=== PATIENT | female | born 1960 ===

== ENCOUNTER 2016-10-28 23:40 | Emergency (ER) | payer OTHER ==
--- NOTE | 2016-10-29 00:34 | ED NURSING NOTES ---
Clinical Report - Nurses [address] [place] [address] 10/28/2016 23:41 Patient: MARYANN HUNT TRIAGE Triage time 23:44. Acuity: LEVEL 3. Chief Complaint: COUGH (Runny nose). 23:50. 23:44 10/28/16. Alert. SEPSIS SCREEN: Sepsis Screen. Negative (no infection suspected/documented). --23:50 Jh Lama R.N. 23:44 10/28/16. BP: 159/82. HR: 96. RR: 17. O2 saturation: 99%. Temp: 99.2 F (oral). Pain level now: 02/02. --23:50 Jh Lama R.N. Weight: 77.1 kg stated. Height/Length: 63 inches Per Patient. BMI: 30.1. --23:48 Jh Lama R.N. Medications Losartan Potassium Oral (pt unsure of dose ). --23:46 Jh Lama R.N. Hydrochlorothiazide Oral 12.5 mg, daily. --23:46 Jh Lama R.N. Citalopram Hydrobromide Oral (Tablet 10 mg) 1 tablet, daily. --23:47 Jh Lama R.N. Medication/allergy information source: the patient. --23:50 hJ Lama R.N. Allergies No Known Drug Allergy. --23:47 Jh Lama R.N. History Arrived by private vehicle. Historian: patient. Accompanied by friend. Primary physician (Dr. Tomas). Onset. (2 weeks ago). ( Patient reports cough for about 2 weeks that has gotten worse). 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 PAST MEDICAL HX: Immunizations: up-to-date. The patient is post-menopausal. SOCIAL HX: Former smoker, end date 2011. No alcohol use or drug use. No infectious disease exposure. ABUSE ASSESSMENT: No report of abuse. FALL RISK ASSESSMENT: Fall risk assessment completed. No fall risk identified. NUTRITIONAL RISK ASSESSMENT: The nutritional risk assessment revealed no deficiencies. FUNCTIONAL ASSESSMENT: Functional assessment: no impairments noted. LEARNING NEEDS ASSESSMENT: The learning needs assessment revealed no barriers. SKIN INTEGRITY ASSESSMENT: Skin integrity risk assessment completed. No skin integrity risk identified. --23:50 Jh Lama R.N. PROBLEMS: Bronchitis. Carpal Tunnel Syndrome. Cervical Radiculopathy. Rotator Cuff Injury. Diabetes Mellitus. Muscle Strain, Lower Extremity. Sciatica. Hypertension. --23:48 Jh Lama R.N. ADDITIONAL SURGERIES: Carpal Tunnel Surgery. Cholecystectomy. . Shoulder Surgery [2012]. --23:48 Jh Lama R.N. Interventions ID band on patient. To treatment room. --23:50 Jh Lama R.N. PHYSICAL ASSESSMENT 23:50. Ambulatory to room. Patient gowned. GENERAL / NEURO / PSYCH: Alert. Oriented X 4. HEENT: No facial asymmetry noted. Mucous membranes are pink. RESPIRATORY: Respirations not labored. SKIN: Skin intact. Skin is warm and dry. Normal skin turgor. --23:50 Jh Lama R.N. NURSING PROGRESS NOTES 23:50. Head of bed elevated. Two patient identifiers checked. Call light placed in reach. Bed placed in lowest position. Brakes of bed on. Patient ready for evaluation- chart flagged. --23:50 Jh Lama R.N. 00:10 RT with pt for breathing treatment. --00:11 Jh Lama R.N. 00:14 10/29/2016 Albuterol Neb TX Nebulizer 1 unit dose given. Given by the respiratory therapist. Allergies verified and confirmed 5 rights. --00:14 Osmany Arrington, ER Entry Level Administrative Assistant 00:19 10/29/2016 Prednisone PO 60 mg given. Allergies verified and confirmed 5 rights. --00:21 Jh Lama R.N. 00:22. Patient transported to radiology by stretcher with tech. --00:22 Jh Lama R.N. 00:27. Patient returned from radiology by stretcher with tech. --00:28 Jh Lama R.N. 00:35 10/29/2016 Zithromax PO Tablets 500 mg given. Allergies verified and confirmed 5 rights. --00:35 Gil Rosario R.N. 00:36. The patient is calm and resting quietly. RESPIRATORY: No respiratory distress. SKIN: Skin is warm and dry. Skin color within normal limits. --00:39 Jh Lama R.N. DISPOSITION / DISCHARGE Departure time: 00:38. Condition at departure: stable. No learning barriers present. Discharge instructions provided and reviewed with the patient. Reviewed medication(s) side effects, precautions, dosing and course information. Prescription(s) given to the patient. Patient verbalized understanding. Written instructions provided in Greenlandic. The patient was discharged home and accompanied by maintenance department technician. She left the Emergency Department ambulatory and via private vehicle. Dye Maker driving. FALL RISK ASSESSMENT: Fall risk assessment completed. No fall risk identified. --00:38 Jh Lama R.N. Locked/Released at 10/29/2016 0:42 by Jh Lama R.N.
--- NOTE | 2016-10-29 00:34 | ED CLINICAL REPORT ---
Clinical Report - Physicians/Mid Levels [facility] [address] [place] [address] 10/28/2016 23:41 Patient: MARYANN HUNT Time Seen: 23:48. Arrived- By private vehicle. Historian- patient. HISTORY OF PRESENT ILLNESS Chief Complaint: COUGH. This started about 2 weeks ago and is still present. The illness is described as moderate. The patient has had a cough and nasal congestion. She has had scant amounts of thick sputum. No difficulty breathing, chest discomfort or pain, fever or muscle aches. No chills, sore throat, hoarseness, nasal discharge or sinus pressure. No sinus drainage or ear pain. Additional history - The patient has had contact with a sick individual. Similar symptoms previously: Recent medical care: Not recently seen/assessed. REVIEW OF SYSTEMS No headache, eye discomfort, nausea, vomiting or diarrhea. No abdominal pain, hay fever, pedal edema, calf pain or difficulty with urination. No skin rash, enlarged lymph nodes or joint pain. All systems otherwise negative, except as recorded above. PAST HISTORY Problems: Carpal Tunnel Syndrome. Cervical Radiculopathy. Rotator Cuff Injury. Diabetes Mellitus. Immunizations. Sciatica. Intervertebral Disc Disease. Herniated Disk. Tetanus Status. Esophagitis. LNMP - Last Normal Menstrual Period. Hypertension. Additional Surgeries: Carpal Tunnel Surgery. Cholecystectomy. . Shoulder Surgery [2012]. Medications: Citalopram Hydrobromide Oral (Tablet 10 mg) 1 tablet, daily. Hydrochlorothiazide Oral 12.5 mg, daily. Losartan Potassium Oral (pt unsure of dose ). Allergies: No Known Drug Allergy. SOCIAL HISTORY Former smoker. No alcohol use or drug use. ADDITIONAL NOTES The nursing notes have been reviewed. PHYSICAL EXAM Vital Signs: 10/28/2016 23:44 BP: 159/82. HR: 96. RR: 17. O2 saturation: 99%. Temp: 99.2 F. Pain level now: 6/10. Have been reviewed. Appearance: Alert. No acute distress. Eyes: Pupils equal, round and reactive to light. Eyes normal inspection. ENT: Nose normal. Neck: Normal inspection. Neck supple. CVS: Normal heart rate and rhythm. Heart sounds normal. Pulses normal. Respiratory: No respiratory distress. Expiratory mild bilateral wheezes diffusely. No decreased breath sounds, rales or prolonged expiration. Abdomen: Soft and nontender. Back: Normal inspection. Skin: Skin warm and dry. Normal skin color. No rash. Normal skin turgor. Extremities: Extremities exhibit normal ROM. No lower extremity edema. Neuro: Oriented X 3. No motor deficit. No sensory deficit. LABS, X-RAYS, AND EKG Chest X-ray: No acute disease. Normal lung markings present. Normal heart size. Mediastinum normal. Great vessels normal. Soft tissues normal. No infiltrate. No fracture. No bony lesion present. Views: PA and lateral. Technique: good. The X-rays were independently viewed by me, interpreted by the radiologist and contemporaneously by me and discussed with the radiologist. Prior films were not available for comparison. Pulse Oximetry: 10/28/2016 23:44 O2 saturation: 99%. (FIO2 - room air). Interpretation: normal. PROGRESS AND PROCEDURES Course of Care: Pt was given an albuterol neb and prednisone. CXR was unremarkable. Pt was given a dose of Zithromax for bronchitis. No emergent condition identified. Patient counseled in person regarding the patient's stable condition, test results, diagnosis and need for follow-up. Concerns were addressed. Old medical records reviewed. Disposition: Discharged. Condition: stable and improved. CLINICAL IMPRESSION Acute bacterial bronchitis associated with chronic obstructive pulmonary disease. Acute viral rhinitis. INSTRUCTIONS Drink plenty of fluids. (Your chest x-ray looks great--no pneumonia.). Warnings: GENERAL WARNINGS: Return or contact your physician immediately if your condition worsens or changes unexpectedly, if not improving as expected, or if other problems arise. Your Current Medications: CONTINUE TAKING THE FOLLOWING MEDICATIONS: Citalopram Hydrobromide Oral : Tablet 10 mg, 1 tablet daily. Hydrochlorothiazide Oral : 12.5 mg daily. Losartan Potassium Oral : pt unsure of dose. Prescription Medications: Zithromax Z-Mirza: Take according to package instructions 2 orally today, followed by 1 orally every day for the next 4 days. Total course 5 days. No refills. Substitution is permissible. Follow-up: Follow up with your doctor in five days if not better. Understanding of the discharge instructions verbalized by patient. (Electronically signed by Valentina Oshea MD 10/29/2016 2:03)
--- NOTE | 2016-10-29 00:34 | ED NURSING NOTES ---
Clinical Report - Nurses [address] [place] [address] 10/28/2016 23:41 Patient: MARYANN HUNT TRIAGE Triage time 23:44. Acuity: LEVEL 3. Chief Complaint: COUGH (Runny nose). 23:50. 23:44 10/28/16. Alert. SEPSIS SCREEN: Sepsis Screen. Negative (no infection suspected/documented). --23:50 Jh Lama R.N. 23:44 10/28/16. BP: 159/82. HR: 96. RR: 17. O2 saturation: 99%. Temp: 99.2 F (oral). Pain level now: 02/02. --23:50 Jh Lama R.N. Weight: 77.1 kg stated. Height/Length: 63 inches Per Patient. BMI: 30.1. --23:48 Jh Lama R.N. Medications Losartan Potassium Oral (pt unsure of dose ). --23:46 Jh Lama R.N. Hydrochlorothiazide Oral 12.5 mg, daily. --23:46 Jh Lama R.N. Citalopram Hydrobromide Oral (Tablet 10 mg) 1 tablet, daily. --23:47 Jh Lama R.N. Medication/allergy information source: the patient. --23:50 Jh Lama R.N. Allergies No Known Drug Allergy. --23:47 Jh Lama R.N. History Arrived by private vehicle. Historian: patient. Accompanied by friend. Primary physician (Dr. Tomas). Onset. (2 weeks ago). ( Patient reports cough for about 2 weeks that has gotten worse). 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 PAST MEDICAL HX: Immunizations: up-to-date. The patient is post-menopausal. SOCIAL HX: Former smoker, end date 2011. No alcohol use or drug use. No infectious disease exposure. ABUSE ASSESSMENT: No report of abuse. FALL RISK ASSESSMENT: Fall risk assessment completed. No fall risk identified. NUTRITIONAL RISK ASSESSMENT: The nutritional risk assessment revealed no deficiencies. FUNCTIONAL ASSESSMENT: Functional assessment: no impairments noted. LEARNING NEEDS ASSESSMENT: The learning needs assessment revealed no barriers. SKIN INTEGRITY ASSESSMENT: Skin integrity risk assessment completed. No skin integrity risk identified. --23:50 Jh Lama R.N. PROBLEMS: Bronchitis. Carpal Tunnel Syndrome. Cervical Radiculopathy. Rotator Cuff Injury. Diabetes Mellitus. Muscle Strain, Lower Extremity. Sciatica. Hypertension. --23:48 Jh Lama R.N. ADDITIONAL SURGERIES: Carpal Tunnel Surgery. Cholecystectomy. . Shoulder Surgery [2012]. --23:48 Jh Lama R.N. Interventions ID band on patient. To treatment room. --23:50 Jh Lama R.N. PHYSICAL ASSESSMENT 23:50. Ambulatory to room. Patient gowned. GENERAL / NEURO / PSYCH: Alert. Oriented X 4. HEENT: No facial asymmetry noted. Mucous membranes are pink. RESPIRATORY: Respirations not labored. SKIN: Skin intact. Skin is warm and dry. Normal skin turgor. --23:50 Jh Lama R.N. NURSING PROGRESS NOTES 23:50. Head of bed elevated. Two patient identifiers checked. Call light placed in reach. Bed placed in lowest position. Brakes of bed on. Patient ready for evaluation- chart flagged. --23:50 Jh Lama R.N. 00:10 RT with pt for breathing treatment. --00:11 Jh Lama R.N. 00:14 10/29/2016 Albuterol Neb TX Nebulizer 1 unit dose given. Given by the respiratory therapist. Allergies verified and confirmed 5 rights. --00:14 Osmany Arrington, ER Squad Boss 00:19 10/29/2016 Prednisone PO 60 mg given. Allergies verified and confirmed 5 rights. --00:21 Jh Lama R.N. 00:22. Patient transported to radiology by stretcher with tech. --00:22 Jh Lama R.N. 00:27. Patient returned from radiology by stretcher with tech. --00:28 Jh Lama R.N. 00:35 10/29/2016 Zithromax PO Tablets 500 mg given. Allergies verified and confirmed 5 rights. --00:35 Gil Rosario R.N. 00:36. The patient is calm and resting quietly. RESPIRATORY: No respiratory distress. SKIN: Skin is warm and dry. Skin color within normal limits. --00:39 Jh Lama R.N. DISPOSITION / DISCHARGE Departure time: 00:38. Condition at departure: stable. No learning barriers present. Discharge instructions provided and reviewed with the patient. Reviewed medication(s) side effects, precautions, dosing and course information. Prescription(s) given to the patient. Patient verbalized understanding. Written instructions provided in Cameroonian. The patient was discharged home and accompanied by matzo forming machine operator. She left the Emergency Department ambulatory and via private vehicle. Sewer Separation Designer driving. FALL RISK ASSESSMENT: Fall risk assessment completed. No fall risk identified. --00:38 Jh Lama R.N. Locked/Released at 10/29/2016 0:42 by Jh Lama R.N.
--- NOTE | 2016-10-29 00:34 | ED ORDER SUMMARY ---
..... Patient: MARYANN HUNT OrderSheet [facility] VisitID: [id number] [place] [address] 56y, F Registration Date/Time: 10/28/2016 ORDER SHEET Weight: 77.1 kg (stated) Allergies: No Known Drug Allergy GENERAL ORDERS: Chest 2V Urgent (00:10 10/29/2016 Juancarlos RUSSELL) (Ack 0:13 CHagerty ER Associate Professor Of Biology) (0:25 RFay) MEDICATION ORDERS: Albuterol Neb Tx 1 unit dose (NOW, with pediatric spacer, HHN) (00:07 10/29/2016 Juancarlos RUSSELL) (0:14 Povo ER Associate Professor Of Biology) Prednisone PO 60 mg (NOW) (00:11 10/29/2016 Juancarlos RUSSELL) (Ack 0:14 JQuivey R.N.) (0:21 JQuivey R.N.) Zithromax PO 500 mg (NOW) (00:32 10/29/2016 Juancarlos RUSSELL) (Ack 0:34 JDeElena R.N.) (0:35 JDeElena R.N.) IV FLUIDS: ORDER SHEET NOTES: [Electronically signed by Jh Lama R.N. (00:42 10/29/2016)] [Electronically signed by Valentina Oshea MD (02:03 10/29/2016)] [Electronically locked/signed by Jh Lama R.N. (00:42 10/29/2016)]
--- NOTE | 2016-10-29 00:34 | ED ORDER SUMMARY ---
..... Patient: MARYANN HUNT OrderSheet [facility] VisitID: [id number] [place] [address] 56y, F Registration Date/Time: 10/28/2016 ORDER SHEET Weight: 77.1 kg (stated) Allergies: No Known Drug Allergy GENERAL ORDERS: Chest 2V Urgent (00:10 10/29/2016 Juancarlos RUSSELL) (Ack 0:13 CHagerty ER Airconditioning Plant Operator) (0:25 RFay) MEDICATION ORDERS: Albuterol Neb Tx 1 unit dose (NOW, with pediatric spacer, HHN) (00:07 10/29/2016 Juancarlos RUSSELL) (0:14 [employer] ER Airconditioning Plant Operator) Prednisone PO 60 mg (NOW) (00:11 10/29/2016 Juancarlos RUSSELL) (Ack 0:14 JQuivey R.N.) (0:21 JQuivey R.N.) Zithromax PO 500 mg (NOW) (00:32 10/29/2016 Juancarlos RUSSELL) (Ack 0:34 JDeElena R.N.) (0:35 JDeElena R.N.) IV FLUIDS: ORDER SHEET NOTES: [Electronically signed by Jh Lama R.N. (00:42 10/29/2016)] [Electronically signed by Valentina Oshea MD (02:03 10/29/2016)] [Electronically locked/signed by Jh Lama R.N. (00:42 10/29/2016)]
--- NOTE | 2016-10-29 02:03 | ED MAR SUMMARY ---
..... Medication Administration Record [facility] [address] [place] [address] Patient: MARYANN HUNT Visit ID: [id number] 56y, F Weight: 77.1 kg Height/Length: 63 in BMI: 30.1 ALLERGIES: No Known Drug Allergy Given 00:14 10/29/2016 Osmany Arrington, ER Ultrasonic Solderer Medication Administered: ALBUTEROL [NEB TX], Dose: 1 unit dose Nebulizer Neb TX. Medication Ordered: Albuterol Neb Tx 1 unit dose (NOW, with pediatric spacer, N). Given 00:19 10/29/2016 Jh Lama, R.N. Medication Administered: PREDNISONE [PO], Dose: 60 mg PO. Medication Ordered: Prednisone PO 60 mg (NOW). Given 00:35 10/29/2016 Gil Rosario, RSugeyN. Medication Administered: ZITHROMAX [PO], Dose: 500 mg Tablets PO. Medication Ordered: Zithromax PO 500 mg (NOW).
--- NOTE | 2016-10-29 02:03 | ED MED RECONCILIATION SUMMARY ---
Patient: MARYANN HUNT Medication Reconciliation Report [facility] VisitID: [id number] [address] [place] [address] 56y, F Registration Date/Time: 10/28/2016 Weight: 77.1 kg Height/Length: 63 in. BMI: 30.1 ALLERGIES: No Known Drug Allergy The patient's Home Medications are listed below: CONTINUE TAKING THE FOLLOWING MEDICATIONS: Citalopram Hydrobromide Oral (10 mg) 1 tablet, daily Hydrochlorothiazide Oral 12.5 mg, daily Losartan Potassium Oral, pt unsure of dose The source(s) of the original Home Medication information: patient The following Medications were given to the patient in the Emergency Department: Albuterol [Neb Tx] Neb TX 1 unit dose, administered: 10/29/2016 12:14:00 AM Prednisone [PO] PO 60 mg, administered: 10/29/2016 12:19:00 AM Zithromax [PO] PO 500 mg, administered: 10/29/2016 12:35:00 AM The following Medications were prescribed to the patient: Zithromax Z-Mirza: Take according to package instructions 2 orally today, followed by 1 orally every day for the next 4 days. Total course 5 days. No refills. Substitution is permissible. -- Valentina Oshea MD
--- NOTE | 2016-10-29 02:03 | ED MED RECONCILIATION SUMMARY ---
Patient: MARYANN HUNT Medication Reconciliation Report [facility] VisitID: [id number] [address] [place] [address] 56y, F Registration Date/Time: 10/28/2016 Weight: 77.1 kg Height/Length: 63 in. BMI: 30.1 ALLERGIES: No Known Drug Allergy The patient's Home Medications are listed below: CONTINUE TAKING THE FOLLOWING MEDICATIONS: Citalopram Hydrobromide Oral (10 mg) 1 tablet, daily Hydrochlorothiazide Oral 12.5 mg, daily Losartan Potassium Oral, pt unsure of dose The source(s) of the original Home Medication information: patient The following Medications were given to the patient in the Emergency Department: Albuterol [Neb Tx] Neb TX 1 unit dose, administered: 10/29/2016 12:14:00 AM Prednisone [PO] PO 60 mg, administered: 10/29/2016 12:19:00 AM Zithromax [PO] PO 500 mg, administered: 10/29/2016 12:35:00 AM The following Medications were prescribed to the patient: Zithromax Z-Mirza: Take according to package instructions 2 orally today, followed by 1 orally every day for the next 4 days. Total course 5 days. No refills. Substitution is permissible. -- Valentina Oshea MD
--- NOTE | 2016-10-29 02:03 | ED DISCHARGE INSTRUCTIONS ---
Patient: MARYANN HUNT General Instructions [facility] VisitID: [id number] [place] [address] 56y, F Registration Date/Time: 10/28/2016 Acute bacterial bronchitis associated with chronic obstructive pulmonary disease. Acute viral rhinitis. INSTRUCTIONS Drink plenty of fluids. (Your chest x-ray looks great--no pneumonia.). Warnings: GENERAL WARNINGS: Return or contact your physician immediately if your condition worsens or changes unexpectedly, if not improving as expected, or if other problems arise. Your Current Medications: CONTINUE TAKING THE FOLLOWING MEDICATIONS: Citalopram Hydrobromide Oral : Tablet 10 mg, 1 tablet daily. Hydrochlorothiazide Oral : 12.5 mg daily. Losartan Potassium Oral : pt unsure of dose. Prescription Medications: Zithromax Z-Mirza: Take according to package instructions 2 orally today, followed by 1 orally every day for the next 4 days. Total course 5 days. No refills. Substitution is permissible. Follow-up: Follow up with your doctor in five days if not better. Understanding of the discharge instructions verbalized by patient. ADDITIONAL INFORMATION Viral Respiratory Illness [Adult] You have an Upper Respiratory Illness (URI) caused by a virus. This illness is contagious during the first few days. It is spread through the air by coughing and sneezing or by direct contact (touching the sick person and then touching your own eyes, nose or mouth). Most viral illnesses go away within 7-10 days with rest and simple home remedies. Sometimes, the illness may last for several weeks. Antibiotics will not kill a virus and are generally not prescribed for this condition. Home Care: 1) If symptoms are severe, rest at home for the first 2-3 days. When you resume activity, don't let yourself get too tired. 2) Avoid being exposed to cigarette smoke (yours or others). 3) Tylenol (acetaminophen) or ibuprofen (Advil, Motrin) will help fever, muscle aching and headache. (Persons under 18 with fever should not take aspirin since this may cause liver damage.) 4) Your appetite may be poor, so a light diet is fine. Avoid dehydration by drinking 6-8 glasses of fluids per day (water, soft drinks, juices, tea, soup). Extra fluids will help loosen secretions in the nose and lungs. 5) Kqxs-nmd-szgudvr cold medicines will not shorten the length of time youre sick, but they may be helpful for the following symptoms: cough (Robitussin DM); sore throat (Chloraseptic lozenges or spray); nasal and sinus congestion (Actifed, Sudafed, Chlortrimeton). Follow Up with your doctor or as advised if you dont improve over the next week. Get Prompt Medical Attention if any of the following occur: -- Cough with lots of colored sputum (mucus) or blood in your sputum -- Chest pain, shortness of breath, wheezing or have trouble breathing -- Severe headache; face, neck or ear pain -- Fever over 100.4 F (38.0 C) for more than three days -- You cant swallow due to throat pain Bronchitis (Adult: Abx Tx) BRONCHITIS is an infection of the air passages (bronchial tubes). It often occurs during the common cold. Symptoms include cough with mucus (phlegm) and low-grade fever. Bronchitis usually lasts 7-14 days. Mild cases can be treated with simple home remedies. More severe infection is treated with an antibiotic. Home Care: If symptoms are severe, rest at home for the first 2-3 days. When you resume activity, don't let yourself get too tired. Do not smoke. Avoid being exposed to the smoke of others. You may use acetaminophen (Tylenol) or ibuprofen (Motrin, Advil) to control fever or pain, unless another medicine was prescribed for this. [NOTE: If you have chronic liver or kidney disease or ever had a stomach ulcer or GI bleeding, talk with your doctor before using these medicines.] Your appetite may be poor, so a light diet is fine. Avoid dehydration by drinking 6-8 glasses of fluids per day (water, soft, drinks, juices, tea, soup, etc.). Extra fluids will help loosen secretions in the lungs. Qetu-uey-edkesns cough medicines that containdextromethorphan(such as Robitussin DM) and decongestants (Actifed or Sudafed) may help relieve cough and congestion. [NOTE: Do not use decongestants if you have high blood pressure.] Finish all antibiotic medicine, even if you are feeling better after only a few days. Follow Up with your doctor or as directed if you dont start to feel better after three days. [NOTE: If you are age 65 or older, or if you have chronic asthma or COPD, we recommend a PNEUMOCOCCAL VACCINATION every five years and a yearly INFLUENZAVACCINATION (FLU-SHOT) every . Ask your doctor about this. If you had an X-ray, a radiologist will review it. You will be notified of any new findings that may affect your care.] Get Prompt Medical Attention if any of the following occur: Fever over 100.4F (38.0C) for more than three days Trouble breathing, wheezing or pain with breathing Coughing up blood or increased amounts of colored sputum Weakness, drowsiness, headache, facial pain, ear pain or a stiff neck You have been given the following additional information: Uri, Viral, No Abx (Adult) Bronchitis, Antiobiotic Treatment (Adult) (Electronically signed by Valentina Oshea MD 10/29/2016 2:03)
--- NOTE | 2016-10-29 02:03 | ED MAR SUMMARY ---
..... Medication Administration Record [facility] [address] [place] [address] Patient: MARYANN HUNT Visit ID: [id number] 56y, F Weight: 77.1 kg Height/Length: 63 in BMI: 30.1 ALLERGIES: No Known Drug Allergy Given 00:14 10/29/2016 Osmany Arrington, ER Clinic Office Manager Medication Administered: ALBUTEROL [NEB TX], Dose: 1 unit dose Nebulizer Neb TX. Medication Ordered: Albuterol Neb Tx 1 unit dose (NOW, with pediatric spacer, N). Given 00:19 10/29/2016 Jh Lama, R.N. Medication Administered: PREDNISONE [PO], Dose: 60 mg PO. Medication Ordered: Prednisone PO 60 mg (NOW). Given 00:35 10/29/2016 Gil Rosario, RSugeyN. Medication Administered: ZITHROMAX [PO], Dose: 500 mg Tablets PO. Medication Ordered: Zithromax PO 500 mg (NOW).
--- NOTE | 2016-10-29 08:15 | DIAGNOSTIC IMAGING REPORT ---
PROCEDURE: XR CHEST 2 VIEW INDICATION: COUGH TECHNIQUE: Two views. COMPARISON: 06/23/2016 FINDINGS: The cardiomediastinal contour is stable, within normal limits. The central vasculature is not congested. The lungs are clear without focal consolidation, pleural effusion or pneumothorax. The visualized osseous structures are intact. Surgical clips in the gallbladder fossa. IMPRESSION: 1. No evidence of acute cardiopulmonary disease. 2. Stable exam compared to prior study.
== END 2016-10-29 00:38 | disposition home or self-care (01) ==
LOC: ED SRH 23:40
DX: J44.0 Chronic obstructive pulmonary disease with (acute) lower respiratory infection (principal); J20.9 Acute bronchitis, unspecified; A49.9 Bacterial infection, unspecified; Z87.891 Personal history of nicotine dependence; I10 Essential (primary) hypertension; E11.9 Type 2 diabetes mellitus without complications; Z79.84 Long term (current) use of oral hypoglycemic drugs; Z79.4 Long term (current) use of insulin; Z79.899 Other long term (current) drug therapy